=== PATIENT | female | born 1990 | race Caucasian/White ===

== ENCOUNTER 2023-02-17 13:46 | Emergency (ER) | payer OTHER, SELFPAY ==
[2023-02-17 14:30] VITALS: BP 116/57; PULSE 74; RESP 16; TEMP 36.8; O2SAT 100
--- NOTE | 2023-02-17 14:44 | ED.GENADULT ---
HPI - General Adult General Chief complaint: Upper Respiratory Infection Stated complaint: Sinus Time Seen by Provider: 02/17/23 14:44 Source: patient Mode of arrival: ambulatory Limitations: no limitations History of Present Illness HPI narrative: 32 year old female present to [facility] care with complaint of being diagnosed with COVID 2 weeks ago with continued cough andsinus congestion and drainage. Patient reports that she has greenish sinus drainage and she has been coughing up some green mucous also. Patinet reports that she has taken sinus medications and also cough medications without resolution of her symptoms. Patient denies any shortness of breath or any known fevers. MD complaint: cough, sinus congestion and drainag Onset (ago): week(s) (2 weeks) Severity scale (1-10): 3 Treatments prior to arrival: other (cough medications and sinus meds) Related Data Home Medications Medication Instructions Recorded Confirmed alprazolam 0.5 mg tablet mg 02/17/23 buspirone 30 mg tablet mg 02/17/23 sertraline 25 mg tablet mg 02/17/23 Allergies Allergy/AdvReac Type Severity Reaction Status Date / Time No Known Allergies Allergy Verified 02/17/23 15:04 Review of Systems Review of Systems: CONSTITUTIONAL: Denies malaise, chills, sweats, or fever. EYES: Denies visual changes, redness, or discharge. ENT: Reports rhinorrhea, congestion, sinus pain, no otalgia or sore throat. CARDIOVASCULAR: Denies chest pain, palpitations, or edema. RESPIRATORY: Reports productive cough Denies dyspnea. GASTROINTESTINAL: Denies abdominal pain, nausea, vomiting, diarrhea SKIN: Denies rash or itching. MUSCULOSKELETAL: Denies myalgia. NEUROLOGIC: Denies headache. All systems reviewed & are unremarkable except as noted in HPI and below [facility] Past Medical History Medical History (Updated 02/19/23 @ 11:56 by Enma Garcia NP) Anxiety and depression COVID-19 Surgical History Surgical History (Updated 02/19/23 @ 11:54 by Enma Garcia NP) H/O arthroscopy of left knee Social History Social History (Updated 02/19/23 @ 11:53 by Enma Garcia NP) Smoking status: Never smoker Alcohol intake: current Alcohol use details: social Substance use type: does not use Living arrangements: with family Gender identity (if verbalized by the patient): Female Comments At time of signature, agree with nursing past medical, surgical, social and family history. There is no relevant family history pertinent to the presenting complaint Exam Narrative: GENERAL: Well-appearing, well-nourished, and in no acute distress. HEAD: Normocephalic EYES: PERRLA, conjunctivae clear ENT: Nares clear, turbinates edematous and erythematous, greenish discharge. Mucous membranes moist. TM pearly nicholas with dull light reflex bilaterally; no tragal tenderness. Oropharynx erythematous without lesions. Tonsils not enlarged and without exudate, no drooling, reports hoarseness, no trismus, uvula midline. NECK: Supple. No lymphadenopathy CHEST: Clear to auscultation, breath sounds equal. No wheezing, rhonchi, rales, or stridor. No respiratory distress, speaks in full sentences.productive cough,SAO2 100% on room air HEART: Regular rate and rhythm. No murmur heard. SKIN: Warm, dry, no rash. NEURO: Alert and oriented x3. PSYCH: Normal mood and affect Course Course Emergency Course: Patient is aware of diagnosis, understands and agrees to treatment plan.? Anticipatory guidance given.? Patient agrees to follow-up as directed and is aware of reasons to seek care at the emergency department. Portions of this record may have been created with voice recognition software Level of Care: Express Care Visit Vital Signs Vital signs: Vital Signs Temperature 36.8 C 02/17/23 14:30 Pulse Rate 74 02/17/23 14:30 Respiratory Rate 16 02/17/23 14:30 Blood Pressure 116/57 L 02/17/23 14:30 Pulse Oximetry 100
== END 2023-02-17 21:33 | disposition home or self-care (01) ==
PROVIDERS: Emergency Provider Registered Nurse; PCP Internal Medicine
DX: J06.9 Acute upper respiratory infection, unspecified (principal); R05.9 Cough, unspecified
CPT/HCPCS: 99213; G0463